=== PATIENT | female | born 1980 | race Two or more races ===

== ENCOUNTER → 2016-09-13 | Outpatient (CLI) | payer MEDICARE, OTHER ==
[~2016-09-13] MED LIST: IBUP80TA PO; PERCOCET PO
== END ==
LOC: M LRY 14:06
PROVIDERS: ATTEND Physician Assistant
DX: S09.92XA Unspecified injury of nose, initial encounter (principal); Z53.8 Procedure and treatment not carried out for other reasons

== ENCOUNTER → 2016-09-13 | Outpatient (CLI) | payer MEDICARE, OTHER ==
--- NOTE | 2016-09-13 14:52 | REP ---
Clinical: Nasal trauma. Technique: Hedrick and bilateral lateral views of the nasal bones. Findings: No obvious acute nasal bone or nasal septal fracture identified. Impression: No acute nasal bone fracture identified. Signed by Nitish Guillermo MD 09/13/2016 02:44 P
== END ==
LOC: M LRY 13:55
PROVIDERS: ATTEND Physician Assistant
DX: S09.92XA Unspecified injury of nose, initial encounter (principal); Y92.9 Unspecified place or not applicable; Y93.9 Activity, unspecified; Y99.8 Other external cause status; X58.XXXA Exposure to other specified factors, initial encounter
CPT/HCPCS: 70160; G0463

== ENCOUNTER 2016-12-22 12:19 | Emergency (ER) | payer MEDICARE, OTHER ==
[~2016-12-22] VITALS: Ht 162.6 cm; Wt 69.3 kg
[2016-12-22] MEDS ORDERED: Insulin pump (12:35)
[2016-12-22 13:50] LABS: BASO % 0.6 % (0.0-1.0); EOS # 0.1 K/mm3 (0.0-0.50); EOS % 1.9 % (0.0-3.0); LARGE UNSTAINED CELL # 0.1 K/mm3 (0.0-0.4); LARGE UNSTAINED CELL % 1.6 % (0.0-4.0); LYMPH # 1.7 K/mm3 (1.5-4.5); LYMPH % 32.7 % (24.0-44.0); MEAN CORPUSCULAR HEMOGLOBIN 28.4 pg (27.0-33.0); MEAN CORPUSCULAR HGB CONC 33.5 g/dl (32.0-36.5); MEAN CORPUSCULAR VOLUME 84.8 fl (80.0-96.0); MONO # 0.2 K/mm3 (0.0-0.8); MONO % 4.9 % (0.0-5.0); NEUTROPHILS # 2.9 K/mm3 (1.8-7.7); NEUTROPHILS % 58.2 % (36.0-66.0); PLATELET COUNT, AUTOMATED 313 k/mm3 (150-450); RED CELL DISTRIBUTION WIDTH 13.3 % (11.5-14.5); WHITE BLOOD COUNT 4.9 K/mm3 (4.0-10.0)
[2016-12-22 14:02] LABS: INR 0.97
[2016-12-22 14:10] LABS: ALBUMIN 4.3 GM/DL (3.2-5.2); ALBUMIN/GLOBULIN RATIO 1.26 (1.00-1.93); ALKALINE PHOSPHATASE 65 U/L (45-117); ALT/SGPT 21 U/L (12-78); ANION GAP 8 MEQ/L (8-16); AST/SGOT 21 U/L (15-37); BILIRUBIN,DIRECT < 0.1 MG/DL (0.0-0.2); BILIRUBIN,TOTAL 0.2 MG/DL (0.2-1.0); BLOOD UREA NITROGEN 6 MG/DL (7-18); CALCIUM LEVEL 9.5 MG/DL (8.5-10.1); CARBON DIOXIDE LEVEL 23 MEQ/L (21-32); CHLORIDE LEVEL 108 MEQ/L (98-107); CREATININE FOR GFR 0.63 MG/DL (0.55-1.02); GLOMERULAR FILTRATION RATE > 60.0 (>60); GLUCOSE, FASTING 82 MG/DL (70-105); POTASSIUM SERUM 3.7 MEQ/L (3.5-5.1); SODIUM LEVEL 139 MEQ/L (136-145); TOTAL PROTEIN 7.7 GM/DL (6.4-8.2)
[2016-12-22] MEDS ORDERED: ISOVUE-370 76% 100ML VIAL (Q9967) As Ordered ONE (15:08)
--- NOTE | 2016-12-22 15:54 | REP ---
REASON: Pain and swelling. TECHNIQUE: Multiple ultrasonographic images of the deep venous structures of the thigh were obtained from the common femoral vein to the popliteal vein along with Doppler interrogation and color flow Doppler images. FINDINGS: There is no abnormal echogenic material seen within any of the visualized deep venous structures that would suggest acute thrombosis. Coaptation is unremarkable throughout. Doppler interrogation shows an expected response to respiratory variability and augmentation. The color flow images show what appears to be a normal vascular pattern throughout. IMPRESSION: There is no ultrasonographic evidence of deep venous thrombosis involving any of the visualized deep venous structures of the bilateral thigh, as described above. Signed by Paul Powell DO 12/22/2016 04:37 P
--- NOTE | 2016-12-22 15:58 | REP ---
REASON: Chest pain. COMPARISON: None. There is mild silhouetting out of the right heart border. Cardiomediastinal silhouette is otherwise within normal limits and the lung armenta are otherwise clear with sharp pleural angles. The osseous structures are within normal limits. IMPRESSION: Silhouetting out of the right heart border of uncertain etiology. This could be secondary to subsegmental atelectatic change or another form of abnormal opacity. Consider followup with chest CT since there are no prior plain films for comparison. Signed by Paul Powell DO 12/22/2016 04:37 P
[2016-12-22 17:22] VITALS: BP 137/80
--- NOTE | 2016-12-22 17:25 | REP ---
CT ANGIOGRAM OF THE CHEST: TECHNIQUE: Axial contrast enhanced images from the thoracic inlet to the upper abdomen using 100 mL Isovue 370 intravenous contrast material with multiplanar reformations. There is no CT evidence of a pulmonary embolism. The heart is normal in size. There is a right pericardial fat pad. No infiltrates are seen. No adenopathy is seen. There is no thoracic aortic aneurysm or dissection. Visualized upper abdominal structures appear unremarkable. IMPRESSION: Right pericardial fat pad. No CT evidence of pulmonary embolism or infiltrate. Signed by Alvarez Whitt MD 12/23/2016 05:34 P
--- NOTE | 2016-12-22 18:29 | ECGEPIP ---
Stationary ECG Study [facility] - ED Test Date: 2016-12-22 Pat Name: MICHI DRUMMOND Department: Room: - Gender: F [employer] Clown: PB : 1980 Requested By: MARLENE Lopez Order Number: [id number] Reading MD: Rae Herrera Measurements Intervals [place] Rate: 92 P: 44 SD: 124 QRS: 56 QRSD: 92 T: 57 QT: 333 QTc: 413 Interpretive Statements SINUS RHYTHM INCREASED RATE 12/31/15 Electronically Signed On 12-22-2016 18:29:11 EDT by Rae Herrera
--- NOTE | 2016-12-22 18:33 | ECGEPIP ---
Stationary ECG Study [facility] - ED Test Date: 2016-12-22 Pat Name: MICHI DRUMMOND Department: Room: - Gender: F Provider Network Analyst: tk : 1980 Requested By: MARLENE Lopez Order Number: [id number] Reading MD: Rae Herrera Measurements Intervals [place] Rate: 77 P: 43 MN: 124 QRS: 45 QRSD: 90 T: 54 QT: 389 QTc: 441 Interpretive Statements SINUS RHYTHM DECREASED RATE 12/22/16 12:33 Electronically Signed On 12-22-2016 18:33:05 EDT by Rae Herrera
== END 2016-12-22 19:10 | disposition home or self-care (01) ==
LOC: M ED 12:19
DX: R07.89 Other chest pain (principal); E11.9 Type 2 diabetes mellitus without complications; M79.7 Fibromyalgia; Z79.4 Long term (current) use of insulin; Z91.040 Latex allergy status; Z96.41 Presence of insulin pump (external) (internal)
CPT/HCPCS: 36415; 71020; 71275; 80048; 80076; 82550; 82553; 83690; 84484; 85025; 85610; 85730; 93005; 93041; 93970; 94760; 99285; Q9967

== ENCOUNTER 2017-01-21 20:13 | Emergency (ER) | payer MEDICARE, OTHER ==
[~2017-01-21] VITALS: Ht 162.6 cm; Wt 68.4 kg
[~2017-01-21 20:13] MED LIST changes: +Insulin pump
[2017-01-21] MEDS ORDERED: NS 1,000 ML IV ONE (20:45)
[2017-01-21] MEDS ORDERED: PANTOPRAZOLE 40MG INJ (PROTONIX) (C9113) IV ONE (20:45)
[2017-01-21] MEDS ORDERED: ONDANSETRON 4MG/2ML VIAL (J2405) IV ONE (20:45)
[2017-01-21] MEDS ORDERED: KETOROLAC 30 MG/ML VIAL (J1885) IV ONE (20:45)
[2017-01-21 21:54] LABS: BASO % 0.6 % (0.0-1.0); EOS # 0.2 K/mm3 (0.0-0.50); EOS % 2.8 % (0.0-3.0); LARGE UNSTAINED CELL # 0.1 K/mm3 (0.0-0.4); LARGE UNSTAINED CELL % 1.4 % (0.0-4.0); LYMPH # 2.1 K/mm3 (1.5-4.5); LYMPH % 38.5 % (24.0-44.0); MEAN CORPUSCULAR HGB CONC 33.5 g/dl (32.0-36.5); MEAN CORPUSCULAR VOLUME 83.4 fl (80.0-96.0); MONO # 0.2 K/mm3 (0.0-0.8); MONO % 4.2 % (0.0-5.0); NEUTROPHILS # 2.8 K/mm3 (1.8-7.7); NEUTROPHILS % 52.6 % (36.0-66.0); PLATELET COUNT, AUTOMATED 270 k/mm3 (150-450); RED CELL DISTRIBUTION WIDTH 13.4 % (11.5-14.5); WHITE BLOOD COUNT 5.4 K/mm3 (4.0-10.0)
[2017-01-21 22:21] LABS: ALBUMIN 3.8 GM/DL (3.2-5.2); ALBUMIN/GLOBULIN RATIO 1.41 (1.00-1.93); ALKALINE PHOSPHATASE 62 U/L (45-117); ALT/SGPT 15 U/L (12-78); AMYLASE 28 U/L (25-115); ANION GAP 10 MEQ/L (8-16); AST/SGOT 11 U/L (15-37); BILIRUBIN,DIRECT < 0.1 MG/DL (0.0-0.2); BILIRUBIN,TOTAL 0.2 MG/DL (0.2-1.0); BLOOD UREA NITROGEN 11 MG/DL (7-18); CARBON DIOXIDE LEVEL 22 MEQ/L (21-32); CHLORIDE LEVEL 108 MEQ/L (98-107); GLOMERULAR FILTRATION RATE > 60.0 (>60); GLUCOSE, FASTING 132 MG/DL (70-105); POTASSIUM SERUM 3.8 MEQ/L (3.5-5.1); SODIUM LEVEL 140 MEQ/L (136-145); TOTAL PROTEIN 6.5 GM/DL (6.4-8.2)
[2017-01-21 22:57] LABS: INR 0.99
[2017-01-21] MEDS ORDERED: MIRA3350 PO (23:08)
[2017-01-21] MEDS ORDERED: NAPR500T PO (23:08)
[2017-01-21 23:12] VITALS: BP 119/65
--- NOTE | 2017-01-22 07:50 | REP ---
Acute abdominal series three views including PA chest and supine upright abdomen: PA chest: Comparison 12/22/2016. The lung armenta are clear. Cardiac size is normal. The yessenia, mediastinum, and bony thorax are unremarkable. There is no free subdiaphragmatic air. There is no interval change. Impression: Negative PA chest. Abdomen, supine and upright views: There are no comparisons. The bowel gas pattern is normal. There is a large metallic artifact along the left lateral abdominal wall, likely the patient's known insulin pump. There are no calcifications. Skeletal structures and soft tissues are otherwise unremarkable. Impression: Normal bowel gas pattern. Signed by Alvarez Zavaleta MD 01/22/2017 07:42 A
== END 2017-01-21 23:25 | disposition home or self-care (01) ==
LOC: M ED 20:13
DX: R10.9 Unspecified abdominal pain (principal); K59.00 Constipation, unspecified; E11.9 Type 2 diabetes mellitus without complications; F17.200 Nicotine dependence, unspecified, uncomplicated; Z96.41 Presence of insulin pump (external) (internal); Z91.040 Latex allergy status
CPT/HCPCS: 36415; 74022; 80048; 80076; 81001; 82150; 83690; 85025; 85379; 85610; 87086; 96374; 96375; 99283; C9113; J1885; J2405

== ENCOUNTER → 2017-02-01 | Outpatient (REF) | payer MEDICARE, OTHER ==
[~2017-02-01] MED LIST changes: +ALBU17IN2 INH; +BENZ100C5 PO; +CEPA5.4L2 MT; +MIRA3350 PO; +MUCILIQ4 PO; +NAPR500T PO
== END ==
LOC: M SFHCLERA 11:07
PROVIDERS: ATTEND Nurse Practitioner Family
DX: R30.0 Dysuria (principal); N30.01 Acute cystitis with hematuria; Z11.3 Encounter for screening for infections with a predominantly sexual mode of transmission; E11.9 Type 2 diabetes mellitus without complications; Z79.4 Long term (current) use of insulin; F17.210 Nicotine dependence, cigarettes, uncomplicated; Z91.040 Latex allergy status; Z79.899 Other long term (current) drug therapy
CPT/HCPCS: 81002; 87086; 87491; 87591; G0463

== ENCOUNTER 2017-02-15 12:17 | Emergency (ER) | payer MEDICARE, OTHER ==
[~2017-02-15] VITALS: Ht 162.6 cm; Wt 68.1 kg
[~2017-02-15 12:17] MED LIST changes: -ALBU17IN2 INH; -BENZ100C5 PO; -CEPA5.4L2 MT; -MUCILIQ4 PO
[2017-02-15] MEDS ORDERED: MUCILIQ4 PO (12:40)
--- NOTE | 2017-02-15 16:33 | REP ---
Clinical: Chest pain. Rule out pneumonia. Comparison: 01/21/2017 . Technique: PA and lateral. Findings: The mediastinum and cardiac silhouette are normal. The lung armenta are clear and without acute consolidation, effusion, or pneumothorax. The skeletal structures are intact and normal. Impression: 1. No acute cardiopulmonary process. Signed by Nitish Guillermo MD 02/15/2017 04:24 P
[2017-02-15] MEDS ORDERED: BENZ100C5 PO (16:36)
[2017-02-15] MEDS ORDERED: ALBU17IN2 INH (16:36)
[2017-02-15] MEDS ORDERED: CEPA5.4L2 MT (16:36)
[2017-02-15 16:43] VITALS: BP 134/83
== END 2017-02-15 16:45 | disposition home or self-care (01) ==
LOC: M ED 12:17
DX: J20.9 Acute bronchitis, unspecified (principal); F17.200 Nicotine dependence, unspecified, uncomplicated; M79.7 Fibromyalgia; E10.9 Type 1 diabetes mellitus without complications; F41.9 Anxiety disorder, unspecified; F32.9 Major depressive disorder, single episode, unspecified; Z86.14 Personal history of Methicillin resistant Staphylococcus aureus infection; Z96.41 Presence of insulin pump (external) (internal); Z79.4 Long term (current) use of insulin; Z91.040 Latex allergy status